=== PATIENT | male | born 1975 | race Caucasian/White ===

== ENCOUNTER 2018-08-30 09:48 | Emergency (ER) | payer OTHER ==
[2018-08-30 10:31] LABS: Protime INR 1.01
[2018-08-30 10:37] LABS: Absolute Lymphocytes (CBC) 2.1 K/uL (0.7-4.9); Basophils % 0.3 % (0-1.3); Eosinophils % 1.7 % (0-4.4); Hematocrit 48.8 % (39.6-49.0); Lymphocytes % 23.8 % (15.3-44.8); MPV 9.8 fL (7.6-11.3); Monocytes % 9.6 % (3.3-12.3); RBC Red Blood Cell Count 5.45 M/uL (4.33-5.43)
--- NOTE | 2018-08-30 10:39 | RAD REPORT ---
EXAM DESCRIPTION: RAD - Chest Single View - 08/30/2018 10:30 am CLINICAL HISTORY: CHEST PAIN Chest pain. COMPARISON: No comparisons FINDINGS: Portable technique limits examination quality. The lungs are grossly clear. The heart is normal in size. No displaced fractures. IMPRESSION: No acute intrathoracic process suspected.
[2018-08-30 10:52] LABS: ALT/SGPT 22 U/L (12-78); AST/SGOT 14 U/L (15-37); Albumin 3.9 g/dL (3.4-5.0); Alkaline Phosphatase 105 U/L (45-117); BUN Blood Urea Nitrogen 14 mg/dL (7-18); Bicarbonate 31 mmol/L (21-32); Bilirubin Direct < 0.1 mg/dL (0-0.2); Bilirubin Total 0.4 mg/dL (0.2-1.0); Glucose Level 89 mg/dL (74-106); Magnesium 2.1 mg/dL (1.8-2.4); NT PRO-BNP 37 pg/mL (<125); Potassium 3.8 mmol/L (3.5-5.1); Protein, Total 8.1 g/dL (6.4-8.2); Sodium Level 138 mmol/L (136-145); Troponin (Emerg Dept Use Only) < 0.02 ng/mL (0.0-0.045)
[2018-08-30 11:44] LABS: Urine Blood NEGATIVE (NEG); Urine Glucose NEGATIVE (NEG); Urine Protein NEGATIVE (NEG)
--- NOTE | 2018-08-30 12:10 | EKG ---
Test Date: 2018-08-30 Test Time: 09:58:09 Airplane Rigger: CASTRO MEASUREMENT RESULTS: Intervals: Rate: 42 WA: 172 QRSD: 78 QT: 420 QTc: 350 Archer: P: 32 WA: 172 QRS: 51 T: 22 INTERPRETIVE STATEMENTS: Marked sinus bradycardia Low voltage QRS Abnormal ECG No previous ECG available for comparison Electronically Signed On 08-30-18 12:10:07 CDT by Garett Whelan
--- NOTE | 2018-08-30 14:39 | ER ---
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 Transition of care: patient was not received from another setting of care. Onset of symptoms was August 30, 2018. Risk Assessment: Do you want to hurt yourself or someone else? Patient reports no desire to harm self or others. Initial Sepsis Screen: Does the patient meet any 2 criteria? No. Patient's initial sepsis screen is negative. Does the patient have a suspected source of infection? No. Patient's initial sepsis screen is negative. Care prior to arrival: None. 09:50 Method Of Arrival: Ambulatory 09:50 Acuity: DONOVAN 3 hj Triage Assessment: 09:58 General: Appears in no apparent distress. Behavior is calm, cooperative. Pain: ls4 Complains of pain in chest Pain currently is 2 out of 10 on a pain scale. Cardiovascular: Reports chest pain, Denies diaphoresis, lightheadedness, shortness of breath, syncope, vomiting. Respiratory: Respiratory effort is even, unlabored, Respiratory pattern is regular. Derm: Skin is pink, warm \T\ dry. Historical: - Allergies: 09:52 PENICILLINS; 09:52 Sulfa (Sulfonamide Antibiotics); - Home Meds: 09:52 Bystolic 10 mg oral tab 1 tab once daily [Active]; - PMHx: 09:52 Hypertension; - PSHx: 09:52 None; - Immunization history:: Last tetanus immunization: unknown. - Social history:: Smoking status: Patient/guardian denies using tobacco. - Ebola Screening: : Patient negative for fever greater than or equal to 101.5 degrees Fahrenheit, and additional compatible Ebola Virus Disease symptoms Patient denies exposure to infectious person Patient denies travel to an Ebola-affected area in the 21 days before illness onset No symptoms or risks identified at this time. Screenin:57 Abuse screen: Denies threats or abuse. Denies injuries from another. Nutritional ls4 screening: No deficits noted. Tuberculosis screening: No symptoms or risk factors identified. Fall Risk None identified. Assessment: 10:10 Pain: Complains of pain in chest Pain does not radiate. Quality of pain is described as ls4 tightness Pain began 2 hours ago. 11:30 Reassessment: Patient and/or family updated on plan of care and expected duration. Pain ls4 level reassessed. Patient is alert, oriented x 3, equal unlabored respirations, skin warm/dry/pink. 12:30 Reassessment: Patient and/or family updated on plan of care and expected duration. Pain ls4 level reassessed. Patient is alert, oriented x 3, equal unlabored respirations, skin warm/dry/pink. 13:00 Reassessment: Patient and/or family updated on plan of care and expected duration. Pain ls4 level reassessed. Patient is alert, oriented x 3, equal unlabored respirations, skin warm/dry/pink. 14:30 Reassessment: Patient and/or family updated on plan of care and expected duration. Pain ls4 level reassessed. Patient is alert, oriented x 3, equal unlabored respirations, skin warm/dry/pink. Vital Signs: 09:52 BP 153 / 103; Pulse 49; Resp 20; Temp 97.8(O); Pulse Ox 100% on R/A; Weight 115.67 kg; hj Height 5 ft. 11 in. (180.34 cm); Pain 2/10; 11:20 BP 102 / 72; Pulse 58; Resp 18; Temp 97.9(TE); Pulse Ox 97% ; mh5 12:06 BP 121 / 93; Pulse 49; Resp 13; Temp 97.9(TE); Pulse Ox 99% ; mh5 13:11 BP 113 / 72; Pulse 51; Resp 18; Temp 98.0(TE); Pulse Ox 99% on R/A; mh5 13:58 BP 108 / 72; Pulse 52; Resp 14; Temp 98.1(TE); Pulse Ox 99% on R/A; mh5 15:10 BP 116 / 81; Pulse 50; Resp 16; Pulse Ox 99% on R/A; Pain 0/10; ls4 09:52 Body Mass Index 35.57 (115.67 kg, 180.34 cm) ED Course: 09:51 Patient arrived in ED. mr 09:51 Triage completed. hj 09:54 Arm band placed on right wrist. hj 09:56 Dora Fung, RN is Primary Nurse. ls4 09:57 Patient has correct armband on for positive identification. Placed in gown. Bed in low ls4 position. Call light in reach. Side rails up X 1. secured entrance monitor on. Pulse ox on. NIBP on. 09:57 No provider procedures requiring assistance completed. Patient maintains SpO2 ls4 saturation greater than 95% on room air. 10:00 EKG done, by technical applications scientist. dt2 10:17 James Borges MD is Attending Physician. kdr 10:29 X-ray completed. Portable x-ray completed in exam room. Patient tolerated procedure jb2 well. 10:33 XRAY Chest (1 view) In Process Unspecified. EDMS 15:12 IV discontinued, intact, bleeding controlled, No redness/swelling at site. Pressure ls4 dressing applied. Administered Medications: No medications were administered Outcome: 14:38 Discharge ordered by . kdr 15:12 Discharged to home ambulatory. ls4 15:12 Condition: stable 15:12 Discharge instructions given to patient, Instructed on discharge instructions, follow up and referral plans. medication usage, safety practices, Demonstrated understanding of instructions, follow-up care, medications. 15:14 Patient left the ED. ls4 Signatures: Dispatcher [employer] EDMS James Borges MD MD kdr Linsey Lopez Jesse jb2 Damian Boo RN RN hj Martinez, Maria Margo Zelaya dt2 Dora Fung, RN RN ls4 Corrections: (The following items were deleted from the chart) 09:54 09:52 Pulse 49bpm; Resp 20bpm; Pulse Ox 100% RA; Temp 97.8F Oral; 115.67 kg; Height 5 hj ft. 11 in.; BMI: 35.5; Pain 2/10; hj
--- NOTE | 2018-08-30 14:39 | EDPHYS ---
Physician Documentation [facility] Name: Pop Estes Age: 43 yrs Sex: Male : 1975 Arrival Date: 08/30/2018 Time: 09:51 Bed 16 Private MD: ED Physician James Borges HPI: 08/30 10:48 This 43 yrs old Male presents to ER via Ambulatory with complaints of Chest kdr Pain. 10:48 The patient or guardian reports chest pain that is located primarily in the anterior kdr chest wall, left. Onset: suddenly, just prior to arrival. The pain does not radiate. Associated signs and symptoms: Pertinent positives: nausea, Pertinent negatives: diaphoresis, shortness of breath. The chest pain is described as burning, dull, a pressure. Duration: The patient or guardian reports a single episode, that is now resolved. Modifying factors: The symptoms are alleviated by nothing. the symptoms are aggravated by nothing. Severity of pain: At its worst the pain was mild. The patient has experienced similar episodes in the past, several times. The patient has not recently seen a physician. The patient was sitting in a meeting when he became flushed and generally poor. He went to the bathroom and flushed his face with water. He noted his BP to be 160/100 - normal is 118/80. He was very anxious but is feeling better now. Historical: - Allergies: 09:52 PENICILLINS; 09:52 Sulfa (Sulfonamide Antibiotics); - Home Meds: 09:52 Bystolic 10 mg oral tab 1 tab once daily [Active]; hj - PMHx: 09:52 Hypertension; - PSHx: 09:52 None; hj - Immunization history:: Last tetanus immunization: unknown. - Social history:: Smoking status: Patient/guardian denies using tobacco. - Ebola Screening: : Patient negative for fever greater than or equal to 101.5 degrees Fahrenheit, and additional compatible Ebola Virus Disease symptoms Patient denies exposure to infectious person Patient denies travel to an Ebola-affected area in the 21 days before illness onset No symptoms or risks identified at this time. ROS: 10:48 Constitutional: Negative for fever, chills, and weight loss, Eyes: Negative for injury, kdr pain, redness, and discharge, ENT: Negative for injury, pain, and discharge, Neck: Negative for injury, pain, and swelling, Respiratory: Negative for shortness of breath, cough, wheezing, and pleuritic chest pain, Abdomen/GI: Negative for abdominal pain, nausea, vomiting, diarrhea, and constipation, Back: Negative for injury and pain, : Negative for injury, bleeding, discharge, and swelling, MS/Extremity: Negative for injury and deformity, Skin: Negative for injury, rash, and discoloration, Neuro: Negative for headache, weakness, numbness, tingling, and seizure activity. Psych: Negative for depression, anxiety, suicide ideation, homicidal ideation, and hallucinations, Allergy/Immunology: Negative for hives, rash, and allergies, Endocrine: Negative for neck swelling, polydipsia, polyuria, polyphagia, and marked weight changes, Hematologic/Lymphatic: Negative for swollen nodes, abnormal bleeding, and unusual bruising. 10:48 Cardiovascular: Positive for chest pain, Negative for edema, orthopnea, palpitations, paroxysmal nocturnal dyspnea, acute changes. Exam: 10:48 Constitutional: This is a well developed, well nourished patient who is awake, alert, kdr and in no acute distress. Head/Face: Normocephalic, atraumatic. Eyes: Pupils equal round and reactive to light, extra-ocular motions intact. Lids and lashes normal. Conjunctiva and sclera are non-icteric and not injected. Cornea within normal limits. Periorbital areas with no swelling, redness, or edema. Neck: Trachea midline, no thyromegaly or masses palpated, and no cervical lymphadenopathy. Supple, full range of motion without nuchal rigidity, or vertebral point tenderness. No Meningismus. Chest/axilla: Normal chest wall appearance and motion. Nontender with no deformity. No lesions are appreciated. Cardiovascular: Regular rate and rhythm with a normal S1 and S2. No gallops, murmurs, or rubs. Normal PMI, no JVD. No pulse deficits. Respiratory: Lungs have equal breath sounds bilaterally, clear to auscultation and percussion. No rales, rhonchi or wheezes noted. No increased work of breathing, no retractions or nasal flaring. Abdomen/GI: Soft, non-tender, with normal bowel sounds. No distension or tympany. No guarding or rebound. No evidence of tenderness throughout. Back: No spinal tenderness. No costovertebral tenderness. Full range of motion. Skin: Warm, dry with normal turgor. Normal color with no rashes, no lesions, and no evidence of cellulitis. MS/ Extremity: Pulses equal, no cyanosis. Neurovascular intact. Full, normal range of motion. Neuro: Awake and alert, GCS 15, oriented to person, place, time, and situation. Cranial nerves II-XII grossly intact. Motor strength 5/5 in all extremities. Sensory grossly intact. Cerebellar exam normal. Normal gait. Psych: Awake, alert, with orientation to person, place and time. Behavior, mood, and affect are within normal limits. Vital Signs: 09:52 BP 153 / 103; Pulse 49; Resp 20; Temp 97.8(O); Pulse Ox 100% on R/A; Weight 115.67 kg; hj Height 5 ft. 11 in. (180.34 cm); Pain 2/10; 11:20 BP 102 / 72; Pulse 58; Resp 18; Temp 97.9(TE); Pulse Ox 97% ; mh5 12:06 BP 121 / 93; Pulse 49; Resp 13; Temp 97.9(TE); Pulse Ox 99% ; mh5 13:11 BP 113 / 72; Pulse 51; Resp 18; Temp 98.0(TE); Pulse Ox 99% on R/A; mh5 13:58 BP 108 / 72; Pulse 52; Resp 14; Temp 98.1(TE); Pulse Ox 99% on R/A; mh5 15:10 BP 116 / 81; Pulse 50; Resp 16; Pulse Ox 99% on R/A; Pain 0/10; ls4 09:52 Body Mass Index 35.57 (115.67 kg, 180.34 cm) MDM: 14:38 Patient medically screened. kdr 15:15 Data reviewed: vital signs, nurses notes, lab test result(s), radiologic studies. kdr 08/30 10:09 Order name: Basic Metabolic Panel; Complete Time: 11:51 [facility] 08/30 10:09 Order name: CBC with Diff; Complete Time: 11:51 [facility] 08/30 10:09 Order name: LFT's; Complete Time: 11:51 [facility] 08/30 10:09 Order name: Magnesium; Complete Time: 11:51 [facility] 08/30 10:09 Order name: NT PRO-BNP; Complete Time: 11:51 [facility] 08/30 10:09 Order name: PT-INR; Complete Time: 11:51 [facility] 08/30 09:54 Order name: EKG; Complete Time: 09:56 hj 08/30 10:09 Order name: Troponin (emerg Dept Use Only); Complete Time: 11:51 [facility] 08/30 10:09 Order name: XRAY Chest (1 view); Complete Time: 11:51 [facility] 08/30 10:09 Order name: Cardiac monitoring; Complete Time: 10:10 [facility] 08/30 10:56 Order name: Urine Dipstick--Ancillary (enter results); Complete Time: 11:51 bd 08/30 11:52 Order name: Troponin (emerg Dept Use Only): Obtain two hours after initial draw; kdr Complete Time: 14:35 08/30 12:31 Order name: EKG; Complete Time: 12:31 [facility] 08/30 10:09 Order name: EKG - Nurse/Tech; Complete Time: 10:10 [facility] 08/30 10:09 Order name: IV Saline Lock; Complete Time: 10:17 [facility] 08/30 10:09 Order name: Labs collected and sent; Complete Time: 10:10 [facility] 08/30 10:09 Order name: O2 Per Protocol; Complete Time: 10:10 [facility] 08/30 10:09 Order name: O2 Sat Monitoring; Complete Time: 10:10 [facility] 08/30 11:52 Order name: EKG - Nurse/Tech; Complete Time: 12:31 kdr Administered Medications: No medications were administered Disposition: 08/30/18 14:38 Discharged to Home. Impression: Weakness, Dizziness and giddiness, Bradycardia, unspecified. - Condition is Stable. - Discharge Instructions: Bradycardia, Adult, Nonspecific Chest Pain, [id number], Weakness, [id number]-[id number], Dizziness, [id number]. - Medication Reconciliation Form, Thank You Letter, Work release form form. - Follow up: Private Physician; When: 2 - 3 days; Reason: If symptoms return, Further diagnostic work-up, Recheck today's complaints, Continuance of care, Re-evaluation by your physician. - Problem is new. - Symptoms are resolved. - Notes: Take one half of your normal Bystolic dose. Follow-up with your cardioloogist at the next available appointment. Signatures: Dispatcher [employer] James Merrill MD MD kdr Damian Boo RN RN hj Dora Fung RN RN ls4 Corrections: (The following items were deleted from the chart) 15:14 14:38 08/30/2018 14:38 Discharged to Home. Impression: Weakness; Dizziness and ls4 giddiness; Bradycardia, unspecified. Condition is Stable. Forms are Medication Reconciliation Form, Thank You Letter, Antibiotic Education, Prescription Opioid Use. Follow up: Private Physician; When: 2 - 3 days; Reason: If symptoms return, Further diagnostic work-up, Recheck today's complaints, Continuance of care, Re-evaluation by your physician. Problem is new. Symptoms are resolved. kdr
--- NOTE | 2018-08-30 16:28 | EKG ---
Test Date: 2018-08-30 Test Time: 12:15:38 Miter Saw Operator: CASTRO MEASUREMENT RESULTS: Intervals: Rate: 44 AL: 176 QRSD: 84 QT: 430 QTc: 367 Clear: P: 22 AL: 176 QRS: 60 T: 14 INTERPRETIVE STATEMENTS: Marked sinus bradycardia Abnormal ECG Compared to ECG 08/30/2018 09:58:09 No significant changes Electronically Signed On 08-30-18 16:27:23 CDT by Garett Whelan
== END 2018-08-30 15:14 | disposition home or self-care (01) ==
LOC: ER 09:48
DX: R00.1 Bradycardia, unspecified (principal); R53.1 Weakness; R42 Dizziness and giddiness; R11.0 Nausea; I10 Essential (primary) hypertension; Z88.0 Allergy status to penicillin; Z88.2 Allergy status to sulfonamides
CPT/HCPCS: 36415; 71045; 80048; 80076; 81003; 83735; 83880; 84484; 85025; 85610; 93005; 99285

== ENCOUNTER 2019-08-28 19:09 | Emergency (ER) | payer BC, OTHER ==
--- OUTSIDE RECORDS SUMMARY | 2019-08-28 20:22 | XMS REPORT | Continuity of Care Document ---
:1975 Author Organization [facility] t Address [address] [place] [address] Care Team Providers Name Role Phone Unavailable Unavailable Unavailable Problems Condition Condition Condition Status Onset Resolution Last Treating Co mments Source Name Details Category Date Date Treatment Clinician Date Guttate Guttate Diagnosis [facility] Erectile Erectile Diagnosis Active [facility] dysfunctio dysfunctio Mely kes - n, n, Memoria unspecifie unspecifie l d erectile d erectile Ou tpati dysfunctio dysfunctio en t n type n type Clinics Mixed Mixed Problem Active [facility] hyperlipid hyperlipid Mely kes - emia emia [facility]oria l [facility] Insomnia, Insomnia, Diagnosis Active [facility] unspecifie unspecifie Mely kes - d type d type Memoria l [facility] HTN, goal HTN, goal Problem Active [facility] below below [facility] - 140/90 140/90 [facility] l [facility] Body mass Body mass Diagnosis Active [facility] index index [facility] - (BMI) (BMI) Memoria 38.0-38.9, 38.0-38.9, l adult adult [facility] Morbid Morbid Diagnosis Active [facility] (severe) (severe) [facility] - obesity obesity Memoria due to due to l excess excess Outpati calories calories ent Clinics Encounter Encounter Diagnosis Active [facility] for for [facility] - dietary dietary Memoria counseling counseling l and and Outpati surveillan surveillan en t ce ce Clinics Allergies, Adverse Reactions, Alerts Allergy Allergy Status Severity Reaction(s) Onset Inactive Treating Comm ents Source Name Type Date Date Clinician penicill Adverse Active Info Not [facility] Reaction Available [facility] Sulfa Adverse Active Info Not [facility] Reaction Available [facility] Medications Ordered Filled Start Stop Current Ordering Indication Dosage Frequency Signature Comments Components Source Medication Medication Date Date Medication? Clinician (SIG) Name Name Ted Jean Yes Colin [address] [facility] Bystolic Bystolic Yes Colin [address] [facility] Fish Oil Fish Oil Yes Colin [address] [facility] Enstilar Enstilar Yes Colin not [facility] defined [facility] Sildenafil Sildenafil Yes Colin [address] [facility] [address] Citrate Citrate Paez as needed [place] [facility] Procedures This patient has no known procedures. Encounters Start End Encounter Admission Attending Care Care Encounter Source Date/Time Date/Time Type Type Clinicians Facility Department ID 2019-06-23 2019-06-23 Outpatient Maggie Manzo [id number] [facility] 09:30:00 09:30:00 [employer] [facility] Outpat[facility] ent Clinics 2019-06-22 2019-06-22 Outpatient Maggie Serranot [id number] [facility] 09:59:00 09:59:00 [email or web address] [facility] Outpati ent Clinics 2019-02-27 2019-02-27 Outpatient Maggie Serranot [id number] [facility] 16:00:00 16:00:00 [place] [facility] Outpati ent Clinics 2019-02-17 2019-02-17 Outpatient Maggie Manzo [id number] 09:01:00 09:01:00 [place] [facility] Results This patient has no known results.
--- OUTSIDE RECORDS SUMMARY | 2019-08-28 20:22 | XMS REPORT ---
:1975 Author Organization [employer] Care Team Providers Name Role Phone Philippe [facility] Provider Role Unavailable Allergies, Adverse Reactions, Alerts Substance Reaction Event Type penicillin Info Not Available Drug Allergy Sulfa Info Not Available Drug Allergy Problems Problem Type Condition Code Onset Dates Condition Statu s Assessment Mixed hyperlipidemia E78.2 Active Assessment HTN, goal below 140/90 I10 Activ e Problem Body mass index (BMI) 38.0-38.9, Z68.38 Active adult Problem Erectile dysfunction, unspecified N52.9 Active erectile dysfunction type Problem Morbid (severe) obesity due to E66.01 Active excess calories Problem Mixed hyperlipidemia E78.2 Active Problem 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 Problem Insomnia, unspecified type G47.00 A ctive Problem HTN, goal below 140/90 I10 Activ e Assessment Morbid (severe) obesity due to E66.01 Active excess calories Assessment Insomnia, unspecified type G47.00 A ctive Assessment Encounter for dietary counseling and Z71.3 Active surveillance Assessment Erectile dysfunction, unspecified N52.9 Active erectile dysfunction type Assessment Body mass index (BMI) 38.0-38.9, Z68.38 Active adult Assessment 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 Medications Medication Code Code Instructions Start End Status Dosage System Date Date Fish Oil [facility] 66046405239 1000 MG Orally Active 1 ca psule Once a day Bystolic [facility] 06822799553 5 MG Orally Active 1 table t Once a day Crestor [facility] 39491265109 10 MG Orally Active 1 table t Once a day Enstilar [facility] [address]-41 Active not defined Sildenafil [facility] 67446734398 20 MG Oral Once Active 1 tablet Citrate a day as needed Results No Known Results Summary Purpose [employer] Submission
--- OUTSIDE RECORDS SUMMARY | 2019-08-28 20:22 | XMS REPORT ---
:1975 Author Organization [employer] Care Team Providers Name Role Phone Philippe Colin Provider Role Unavailable Allergies No Known Allergies Problems Problem Type Condition Code Onset Dates [...] HTN, goal below 140/90 I10 Activ e Medications Medication Code System Code Instructions Start Date End Date Status Dosage Crestor [facility] 45707042292 10 MG Orally Once Active 1 tablet a day Bystolic [facility] 39873847868 5 MG Orally Once Active 1 tablet a day Results No Known Results Summary Purpose [employer] Submission
[2019-08-28] MEDS ORDERED: KETOROLAC 30 MG/ML INJ ONE (20:35)
--- NOTE | 2019-08-28 20:48 | ER ---
Nurse's Notes [facility] Name: Pop Estes Age: 44 yrs Sex: Male : 1975 Arrival Date: 08/28/2019 Time: 19:18 Bed 4 Private MD: Diagnosis: Sprain of other parts of lumbar spine and pelvis Presentation: 08/27 19:53 Chief complaint: Patient states: "I STARTED HAVING BACK SPASMS WEDNESDAY, I'VE TRIED ICE, vc HEAT, ALIEVE, I WENT TO THE CHIROPRACTOR TODAY AND SHE WOULDN'T ADJUST ME BECAUSE SHE SAID I HAD TOO MANY MUSCLE SPASMS. SHE DID X-RAY AND SAID I'M SO INFLAMED IT COULD BE PINCHING MY NERVE. IM STARTING TO FEEL THE PAIN DOWN TO MY KNEE.". Coronavirus screen: Proceed with normal triage. Patient denies a cough. Patient denies shortness of breath or difficulty breathing. Patient denies measured and/or subjective temperature greater than 100.4F prior to today's visit. Patient denies travel on a cruise ship or to a country the [facility] currently lists as an affected area. Patient denies contact with known and/or suspected case of COVID-19. Ebola Screen: No symptoms or risks identified at this time. Initial Sepsis Screen: Does the patient meet any 2 criteria? No. Patient's initial sepsis screen is negative. Does the patient have a suspected source of infection? No. Patient's initial sepsis screen is negative. Risk Assessment: Do you want to hurt yourself or someone else? Patient reports no desire to harm self or others. Onset of symptoms was August 25, 2019. 19:53 Method Of Arrival: Wheelchair vc 19:53 Acuity: DONOVAN 3 vc Historical: - Allergies: 20:37 PENICILLINS; rv 20:38 Sulfa (Sulfonamide Antibiotics); rv - PMHx: 20:38 Hypertension; rv - PSHx: 20:38 Unable to obtain; rv - Immunization history:: Adult Immunizations. - Social history:: Smoking status: unknown. Screenin:38 Abuse screen: Denies threats or abuse. Denies injuries from another. Nutritional rv screening: No deficits noted. Tuberculosis screening: No symptoms or risk factors identified. Fall Risk None identified. Assessment: 20:36 General: Appears uncomfortable, Behavior is calm, cooperative. Pain: Complains of pain rv in back Quality of pain is described as SPASM. Neuro: Level of Consciousness is awake, alert, obeys commands, Oriented to person, place, time, situation. Cardiovascular: Patient's skin is warm and dry. Respiratory: Airway is patent Respiratory effort is even, unlabored. Derm: Skin is intact. Vital Signs: 19:53 BP 133 / 89; Pulse 74; Resp 17; Temp 99.3; Pulse Ox 98% on R/A; Weight 121.56 kg; vc Height 5 ft. 11 in. (180.34 cm); Pain 10/10; 19:53 Body Mass Index 37.38 (121.56 kg, 180.34 cm) vc ED Course: 19:18 Patient arrived in ED. cl3 20:03 Triage completed. vc 20:10 Harshil Jensen MD is Attending Physician. tw4 20:25 Benjamin Reynoso RN is Primary Nurse. rv 20:39 Patient has correct armband on for positive identification. Pulse ox on. NIBP on. rv 20:39 Patient placed in the treatment room, in a wheelchair. rv 21:05 No provider procedures requiring assistance completed. Patient did not have IV access rv during this emergency room visit. Administered Medications: 20:36 Drug: TORadol 60 mg Route: IM; Site: right deltoid; rv 21:04 Follow up: Response: No adverse reaction rv 21:04 Drug: [place] 5 mg-325 mg 1 tabs {Note: rass 0.} Route: PO; rv 21:04 Follow up: Response: Medication administered at discharge. rv 21:04 Drug: Flexeril 10 mg Route: PO; rv 21:04 Follow up: Response: Medication administered at discharge. rv Outcome: 20:47 Discharge ordered by . tw4 21:05 Discharged to home ambulatory, with family. rv 21:05 Condition: good 21:05 Discharge instructions given to patient, Instructed on discharge instructions, follow up and referral plans. medication usage, Demonstrated understanding of instructions, follow-up care, medications, Prescriptions given X 3. 21:05 Patient left the ED. rv Signatures: Harshil Jensen MD MD tw4 Benjamin Reynoso RN RN rv Lina Coon cl3 Bailey Jesus RN RN vc
--- NOTE | 2019-08-28 20:48 | EDPHYS ---
Physician Documentation [facility] Name: Pop Estes Age: 44 yrs Sex: Male : 1975 Arrival Date: 08/28/2019 Time: 19:18 Bed 4 Private MD: ED Physician Harshil Jensen HPI: 08/27 20:32 This 44 yrs old Male presents to ER via Wheelchair with complaints of Back tw4 Pain. 20:32 The patient presents with pain that is acute. tw4 20:34 The symptoms are located in the low back. Onset: The symptoms/episode began/occurred tw4 yesterday. The pain radiates to the left quadriceps. 08/28 06:50 Associated signs and symptoms: The patient has no apparent associated signs or tw4 symptoms. The problem was sustained when bending over, when lifting heavy object. Severity of symptoms: At their worst the symptoms were moderate, in the emergency department the symptoms are unchanged. The patient has not experienced similar symptoms in the past. Historical: - Allergies: 08/27 20:37 PENICILLINS; rv 20:38 Sulfa (Sulfonamide Antibiotics); rv - PMHx: 20:38 Hypertension; rv - PSHx: 20:38 Unable to obtain; rv - Immunization history:: Adult Immunizations. - Social history:: Smoking status: unknown. ROS: 08/28 06:50 Constitutional: Negative for fever, chills, and weight loss, Eyes: Negative for injury, tw4 pain, redness, and discharge, Cardiovascular: Negative for chest pain, palpitations, and edema, Respiratory: Negative for shortness of breath, cough, wheezing, and pleuritic chest pain, Abdomen/GI: Negative for abdominal pain, nausea, vomiting, diarrhea, and constipation, MS/Extremity: Negative for injury and deformity, Skin: Negative for injury, rash, and discoloration, Neuro: Negative for headache, weakness, numbness, tingling, and seizure. Back: Positive for injury or acute deformity, decreased range of motion, pain at rest, pain with movement. Exam: 06:50 Constitutional: This is a well developed, well nourished patient who is awake, alert, tw4 and in no acute distress. Head/Face: Normocephalic, atraumatic. Chest/axilla: Normal chest wall appearance and motion. Nontender with no deformity. No lesions are appreciated. Cardiovascular: Regular rate and rhythm with a normal S1 and S2. No gallops, murmurs, or rubs. Normal PMI, no JVD. No pulse deficits. Respiratory: Lungs have equal breath sounds bilaterally, clear to auscultation and percussion. No rales, rhonchi or wheezes noted. No increased work of breathing, no retractions or nasal flaring. Abdomen/GI: Soft, non-tender, with normal bowel sounds. No distension or tympany. No guarding or rebound. No evidence of tenderness throughout. MS/ Extremity: Pulses equal, no cyanosis. Neurovascular intact. Full, normal range of motion. Neuro: Awake and alert, GCS 15, oriented to person, place, time, and situation. Cranial nerves II-XII grossly intact. Motor strength 5/5 in all extremities. Sensory grossly intact. Cerebellar exam normal. Normal gait. 06:50 Back: pain, that is mild, ROM is decreased. Vital Signs: 08/27 19:53 BP 133 / 89; Pulse 74; Resp 17; Temp 99.3; Pulse Ox 98% on R/A; Weight 121.56 kg; vc Height 5 ft. 11 in. (180.34 cm); Pain 10/10; 19:53 Body Mass Index 37.38 (121.56 kg, 180.34 cm) vc MDM: 20:10 Patient medically screened. tw4 08/28 06:50 Differential diagnosis: Cholelithiasis Osteoarthritis Osteomalacia Osteomyelitis tw4 Osteoporosis Pyelonephritis ruptured disc, Ureterolithiasis vertebral fracture. Data reviewed: vital signs, nurses notes. Data interpreted: Pulse oximetry: Interpretation: normal. Counseling: I had a detailed discussion with the patient and/or guardian regarding: the historical points, exam findings, and any diagnostic results supporting the discharge/admit diagnosis. Medication response: Toradol partially relieved the patient's pain. Response to treatment: the patient's symptoms have markedly improved after treatment, and as a result, I will discharge patient. Administered Medications: 08/27 20:36 Drug: TORadol 60 mg Route: IM; Site: right deltoid; rv 21:04 Follow up: Response: No adverse reaction rv 21:04 Drug: [place] 5 mg-325 mg 1 tabs {Note: rass 0.} Route: PO; rv 21:04 Follow up: Response: Medication administered at discharge. rv 21:04 Drug: Flexeril 10 mg Route: PO; rv 21:04 Follow up: Response: Medication administered at discharge. rv Disposition: 08/28/19 20:47 Discharged to Home. Impression: Sprain of other parts of lumbar spine and pelvis. - Condition is Stable. - Discharge Instructions: Back Pain, Adult. - Prescriptions for Ibuprofen 800 mg Oral Tablet - take 1 tablet by ORAL route every 8 hours As needed take with food; 30 tablet. Tramadol 50 mg Oral Tablet - take 1 tablet by ORAL route every 8 hours as needed; 12 tablet. Cyclobenzaprine 5 mg Oral Tablet - take 1 tablet by ORAL route 3 times per day As needed; 15 tablet. - Medication Reconciliation Form, Thank You Letter, Antibiotic Education, Prescription Opioid Use, Work release form form. - Follow up: Private Physician; When: Upon discharge from the Emergency Department; Reason: Recheck today's complaints, Continuance of care, Re-evaluation by your physician. - Problem is new. - Symptoms have improved. Signatures: Harshil Jensen MD MD tw4 Benjamin Reynoso RN RN rv Corrections: (The following items were deleted from the chart) 21:05 20:47 08/28/2019 20:47 Discharged to Home. Impression: Sprain of other parts of lumbar rv spine and pelvis. Condition is Stable. Forms are Medication Reconciliation Form, Thank You Letter, Antibiotic Education, Prescription Opioid Use. Follow up: Private Physician; When: Upon discharge from the Emergency Department; Reason: Recheck today's complaints, Continuance of care, Re-evaluation by your physician. Problem is new. Symptoms have improved. tw4
[2019-08-28] MEDS ORDERED: CYCLOBENZAPRINE 10 MG TAB ONE (21:08)
[2019-08-28] MEDS ORDERED: HYDROCODONE/APAP 5/325 MG TAB ONE (21:08)
[2019-08-28 21:12] VITALS: BP 133/89; TEMP 99.3; O2SAT 98
== END 2019-08-28 21:05 | disposition home or self-care (01) ==
LOC: ER 19:09
DX: S33.8XXA Sprain of other parts of lumbar spine and pelvis, initial encounter (principal); X50.0XXA Overexertion from strenuous movement or load, initial encounter; I10 Essential (primary) hypertension; Z88.0 Allergy status to penicillin; Z88.2 Allergy status to sulfonamides
CPT/HCPCS: 96372; 99283

== ENCOUNTER 2024-07-29 11:55 | Emergency (ER) | payer BC ==
--- OUTSIDE RECORDS SUMMARY | 2024-07-29 11:59 | XMS REPORT | Clinical Summary ---
Author Name Unknown Organization [facility] Address [address] [place] [address] Care Team Providers Care Rn Licensed Practical Name Role Phone Zaid Ambrosio MD Primary Care Provider [phone] Elke Yarbrough MD Unavailable Yariel Summers MD Unavailable [phone] Allergies Active Allergy Reactions Criticality Noted Date Comments Mold Other (See Comments) 01/07/2016 Penicillins Hives High 01/07/2016 Sulfa (Sulfonamide Antibiotics) Hives 12/14 Medications nebivolol (BYSTOLIC) 10 mg tablet Take 1 tablet by mouth daily. 5 Active MULTIVIT-MINERA LS/FA/LYCOPENE (ONE-A-DAY MEN'S ORAL) Take 1 tablet by mouth daily. Active DOCOSAHEXANOIC ACID/EPA (FISH OIL ORAL) Take 1,400 mg by mouth daily. Active L. ACIDOPHILUS/BIF CHAPIS LONGUM (PROBIOTIC PEARLS ORAL) Take 1 tablet by mouth daily. Active psyllium, aspartame, (METAMUCIL) 3.4 g packet Take 1 packet by mouth daily. Active triamcinolone (KENALOG) 0.1% cream Apply 1 application topically to affected area(s) daily. Active clobetasol (TEMOVATE) 0.05% cream Apply topically to affected area(s). Active Active Problems Problem Noted Date Diagnosed Date Mass of axilla 01/07/2016 Medical History Medical History Date Comments Hypertension 2013 Hyperlipidemia 2014 Sinusitis 11/2015 Deviated septum Nodule in breast 10/2015 Under right arm Cyst of breast 2006 2 small cysts re moved Gastric reflux Genital warts Immune disease 12 years old Guttate psoriasi s Fracture 1993 Broken hand Anxiety 14 years old Psoriasis 14 years old Guttate psoriasi s Gastroesophageal reflux disease Family History Medical History Relation Name Comments -Leukemia Father Gus cespedes Chronic Mye logenous Leukemia Hypertension Maternal Aunt Simona cash High bp -Melanoma Mother Luz cesepdes Skin cance r removed basal cell Hypertension Mother Luz cespedes High bp Relation Name Status Comments Father Gus cespedes Maternal Aunt Simona cash Mother Luz cespedes Social History Tobacco Use Types Packs/Day Years Used Date Smoking Tobacco: Passive Smoke Exposure - Never Smoker Cigarettes 0.3 10 - 01/07/2016 Smokeless Tobacco: Current Tobacco Cessation:Ready to Q uit: Yes Alcohol Use Standard Drinks/Week Comments No 0 (1 standard drink = 0.6 oz pur e alcohol) Sex and Gender Information Value Date Recorded Sex Assigned at Not on file Legal Sex Male 10:58 AM CDT Gender Identity Not on file Sexual Orientation Not on file Obstetrics History Plan of Treatment Health Maintenance Due Date Last Done Comments COVID-19 Vaccine ( - 2023-2 5 season) 2023 Influenza Vaccine (Season Ended) 2024 Pneumococcal Vaccine Aged Out No long er eligible based on patient's age to complete this topic Insurance AENA O AETNA O AETNA O Care Teams Rn Licensed Practical Relationship Specialty Start Date End Date Zaid Ambrosio MD [address] [place] [id number] [email or web address] - General Internal Medicine 01/07/16 Elke Yarbrough MD [address] [place] [id number] [email or web address] [email or web address] 01/07/16 Yariel Summers MD [address] [place] [id number] [email or web address] Physician Internal Medicine 01/07/16
[2024-07-29] MEDS ORDERED: HYDROCODONE/APAP 5/325 MG TAB ONE (12:26)
[2024-07-29] MEDS ORDERED: ONDANSETRON 4 MG/2 ML VIAL ONE (13:15)
[2024-07-29] MEDS ORDERED: MORPHINE 4 MG/ML SYR ONE (13:15)
--- NOTE | 2024-07-29 13:57 | RAD REPORT ---
EXAMINATION: Elbow Right 3 View CLINICAL INDICATION: Male, 49 years old. Swelling;Pain RIGHT COMPARISON: No prior exam. FINDINGS: No acute fracture. No malalignment/dislocation. No significant focal degenerative change. Other: n/a IMPRESSION: No acute osseous abnormality.
--- NOTE | 2024-07-29 13:58 | RAD REPORT ---
EXAMINATION: Humerus Right VIEWS: Two views CLINICAL INDICATION: Male, 49 years old. Swelling;Pain RIGHT COMPARISON: No prior exam. IMPRESSION: No acute fracture. No acute soft tissue abnormality. No radiopaque foreign body.
--- NOTE | 2024-07-29 14:04 | EDPHYS ---
Physician Documentation [facility] Name: Pop Estes Age: 49 yrs Sex: Male : 1975 Arrival Date: 07/29/2024 Time: 11:55 Bed 10 Private MD: ED Physician Grabiel Seaman HPI: 07/29 12:03 This 49 yrs old Male presents to ER via Unassigned with complaints of Arm dr5 Injury - SAYS SOUNDED LIKE SOMETHING SNAPPED. 12:03 Patient is a 49-year-old male coming in with right upper arm pain specific to right dr5 humerus and right elbow when he states he heard something snap in his right upper arm. Patient reports bulging and swelling to right bicep that is not normal. Patient also reports is not able to extend his arm all the way due to pain.. Historical: - Allergies: 12:18 PENICILLINS; ll1 12:18 Sulfa (Sulfonamide Antibiotics); ll1 - Home Meds: 12:18 Tremfya subcutaneous [Active]; ll1 13:26 Lisinopril Oral [Active]; Lexapro Oral [Active]; hb - PMHx: 12:18 Hypercholesterolemia; Hypertension; ll1 - PSHx: 12:18 None; ll1 - Immunization history:: Adult Immunizations up to date. - Infectious Disease History:: Denies. - Social history:: Smoking status: Patient reports use of chewing tobacco. ROS: 12:03 Constitutional: as per hpi dr5 Exam: 12:03 Constitutional: This is a well developed, well nourished patient who is awake, alert, dr5 and in no acute distress. Head/Face: Normocephalic, atraumatic. Eyes: Pupils equal round and reactive to light, extra-ocular motions intact. Lids and lashes normal. Conjunctiva and sclera are non-icteric and not injected. Cornea within normal limits. Periorbital areas with no swelling, redness, or edema. Neck: Trachea midline, no thyromegaly or masses palpated, and no cervical lymphadenopathy. Supple, full range of motion without nuchal rigidity, or vertebral point tenderness. No Meningismus. Chest/axilla: Normal chest wall appearance and motion. Nontender with no deformity. No lesions are appreciated. Cardiovascular: Regular rate and rhythm with a normal S1 and S2. Normal PMI, no JVD. No pulse deficits. Respiratory: Lungs have equal breath sounds bilaterally, clear to auscultation. No rales, rhonchi or wheezes noted. No increased work of breathing, no retractions or nasal flaring. Back: No spinal tenderness. No costovertebral tenderness. Full range of motion. Skin: Warm, dry with normal turgor. Normal color with no rashes, no lesions, and no evidence of cellulitis. Neuro: Awake and alert, GCS 15, oriented to person, place, time, and situation. Cranial nerves II-XII grossly intact. Motor strength 5/5 in all extremities. Sensory grossly intact. Cerebellar exam normal. Normal gait. 12:03 Musculoskeletal/extremity: Extremities: noted in the right bicep and right antecubital area: pain, swelling, tenderness, ROM: limited active range of motion, in the right arm, Circulation is intact in all extremities. Sensation intact. Vital Signs: 12:19 Pulse 89; Resp 16; Temp 97.1; Pulse Ox 97% ; Weight 126.1 kg; Height 5 ft. 11 in. ; ll1 Pain 5/10; 12:19 BP 146 / 90; ll1 14:50 BP 145 / 95; Pulse 72; Resp 17; Pulse Ox 98% ; Pain 3/10; ll1 12:19 Body Mass Index 38.77 (126.10 kg, 180.34 cm) ll1 12:19 Pain Scale: Adult ll1 14:50 Pain Scale: Adult ll1 MDM: 12:00 Medical Screening Exam initiated dr5 15:06 Differential diagnosis: dislocation, open fracture, closed fracture, contusion, dr5 abrasion, tendonitis, Tendon tear, tendon rupture. Data reviewed: vital signs, nurses notes, radiologic studies, plain films. I considered the following discharge prescriptions or medication management in the emergency department Medications were administered in the Emergency Department. See MAR. Care significantly affected by the following chronic conditions: Hypertension, Hyperlipidemia. Care significantly affected by the following Social Determinants of Health: Poor access to healthcare and/or lack of insurance, Poor access to transportation, Problems related to employment. Counseling: I had a detailed discussion with the patient and/or guardian regarding the historical points, exam findings, and any diagnostic results supporting the discharge/admit diagnosis, the presence of at least one elevated blood pressure reading (>120/80) during this emergency department visit, lab results, the need for outpatient follow up, for definitive care, a family practitioner, a orthopedic surgeon, to return to the emergency department if symptoms worsen or persist or if there are any questions or concerns that arise at home. Medication response: morphine markedly relieved the patient's pain. Symptoms have improved, Zofran markedly relieved the patient's nausea. Response to treatment: the patient's symptoms have markedly improved after treatment. ED course: Sling applied in ER for comfort. Patient does not have any pain while in sling. Recommended patient follow-up with orthopedics on Wednesday for further management. Patient was given CD as well as x-ray reports to take with him. Recommended alternating Tylenol Motrin as needed for pain and will give tramadol for breakthrough pain. All questions answered.. 07/29 12:03 Order name: Humerus Right XRAY; Complete Time: 13:59 dr5 07/29 12:03 Order name: Elbow Right 3 View XRAY; Complete Time: 13:59 dr5 07/29 13:37 Order name: Sling; Complete Time: 14:47 dr5 Administered Medications: 12:40 Drug: HYDROcodone-acetaminophen PO 5 mg-325 mg 2 tabs PO once Route: PO; hb 13:25 Follow up: Response: No adverse reaction hb 13:21 Drug: morphine IVP or IV 4 mg IVP once over 4 mins {Note: pain 5/10 RASS 0.} Route: ll1 IVP; Infused Over: 4 mins; Site: left antecubital; 14:46 Follow up: Response: No adverse reaction; Pain is decreased; RASS: Alert and Calm (0) ll1 13:22 Drug: Ondansetron IVP 4 mg IVP once; over 2 minutes Route: IVP; Site: left antecubital; ll1 14:47 Follow up: Response: No adverse reaction ll1 Disposition Summary: 07/29/24 14:04 Discharge Ordered Notes: Location: Home dr5 Condition: Stable dr5 Diagnosis - Pain in right upper arm dr5 Followup: dr5 - With: Emergency Department - When: As needed - Reason: Worsening of condition Followup: dr5 - With: Ammon Vuong MD - When: 1 - 2 days - Reason: Recheck today's complaints, Continuance of care, Re-evaluation by your physician Followup: dr5 - With: Remy Ferrer MD - When: 1 - 2 days - Reason: Recheck today's complaints, Continuance of care, Re-evaluation by your physician Discharge Instructions: - Discharge Summary Sheet dr5 - How to Use a Sling dr5 - Distal Biceps Tendon Tear dr5 Forms: - Work release form dr5 - Medication Reconciliation Form dr5 - Patient Portal Instructions dr5 - Leadership Thank You Letter dr5 Prescriptions: - Tramadol 50 mg Oral tablet - take 1 tablet ORAL route every 8 hours as needed; 20 tablet; Refills: 0, dr5 Product Selection Permitted Signatures: Dispatcher [employer] EDIL Mellissa Perry RN RN Nikolai Coon RN RN ll1 Richie Jones, PLUSH CUTTER-C PLUSH CUTTER-Cdr5
--- NOTE | 2024-07-29 14:04 | ER ---
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 Limited ROM with severe pain since. Coronavirus screen: Client denies travel out of the [place] in the last 14 days. At this time, the client does not indicate any symptoms associated with coronavirus-19. Ebola Screen: Patient denies travel to an Ebola-affected area in the 21 days before illness onset. Initial Sepsis Screen: Does the patient meet any 2 criteria? No. Patient's initial sepsis screen is negative. Does the patient have a suspected source of infection? No. Patient's initial sepsis screen is negative. Risk Assessment: Do you want to hurt yourself or someone else? Patient reports no desire to harm self or others. Onset of symptoms was July 29, 2024. 12:19 Method Of Arrival: Ambulatory ll1 12:19 Acuity: DONOVAN 4 ll1 Triage Assessment: 12:19 General: Appears distressed, uncomfortable, Behavior is calm, cooperative, appropriate ll1 for age. Pain: Complains of pain in right arm Quality of pain is described as aching. Musculoskeletal: Reports pain in right arm. 12:20 Injury Description: strain RUE. ll1 Historical: - Allergies: 12:18 PENICILLINS; ll1 12:18 Sulfa (Sulfonamide Antibiotics); ll1 - Home Meds: 12:18 Tremfya subcutaneous [Active]; ll1 13:26 Lisinopril Oral [Active]; Lexapro Oral [Active]; hb - PMHx: 12:18 Hypercholesterolemia; Hypertension; ll1 - PSHx: 12:18 None; ll1 - Immunization history:: Adult Immunizations up to date. - Infectious Disease History:: Denies. - Social history:: Smoking status: Patient reports use of chewing tobacco. Screenin:30 [facility] ED Fall Risk Assessment (Adult) History of falling in the last 3 months, hb including since admission No falls in past 3 months (0 pts) Confusion or Disorientation No (0 pts) Intoxicated or Sedated No (0 pts) Impaired Gait No (0 pts) Mobility Assist Device Used No (0 pt) Altered Elimination No (0 pt) Score/Fall Risk Level 0 - 2 = Low Risk Oriented to surroundings, Maintained a safe environment, Educated pt \T\ family on fall prevention, incl call for assistance when getting out of bed. 12:30 Abuse screen: Denies threats or abuse. Denies injuries from another. Nutritional hb screening: No deficits noted. Tuberculosis screening: Assessment: 13:13 Reassessment: No changes from previously documented assessment. Patient and/or family ll1 updated on plan of care and expected duration. Pain level reassessed. Patient is alert, oriented x 3, equal unlabored respirations, skin warm/dry/pink. 14:47 Reassessment: No changes from previously documented assessment. Patient and/or family ll1 updated on plan of care and expected duration. Pain level reassessed. Patient is alert, oriented x 3, equal unlabored respirations, skin warm/dry/pink. 14:50 Musculoskeletal: Circulation, motion, and sensation intact. Capillary refill < 3 ll1 seconds, in right fingers. Vital Signs: 12:19 Pulse 89; Resp 16; Temp 97.1; Pulse Ox 97% ; Weight 126.1 kg; Height 5 ft. 11 in. ; ll1 Pain 5/10; 12:19 BP 146 / 90; ll1 14:50 BP 145 / 95; Pulse 72; Resp 17; Pulse Ox 98% ; Pain 3/10; ll1 12:19 Body Mass Index 38.77 (126.10 kg, 180.34 cm) ll1 12:19 Pain Scale: Adult ll1 14:50 Pain Scale: Adult ll1 ED Course: 12:00 Patient arrived in ED. sj2 12:00 [facility]C [facility]. dr5 12:00 Grabiel Seaman MD is Attending Physician. dr5 12:18 Arm band placed on. ll1 12:20 Triage completed. ll1 12:30 Patient has correct armband on for positive identification. Bed in low position. Call hb light in reach. Provided Education on: POC. 13:12 Inserted saline lock: 20 gauge in left antecubital area, using aseptic technique. ll1 Flushed with 10 mL NS. 13:33 Humerus Right XRAY In Process Unspecified. EDMS 13:33 Elbow Right 3 View XRAY In Process Unspecified. EDMS 14:04 Ammon Vuong MD is Referral Physician. dr5 14:04 Remy Ferrer MD is Referral Physician. dr5 14:18 Patient requests pain medication. mb9 14:47 No provider procedures requiring assistance completed. IV discontinued, intact, ll1 bleeding controlled, No redness/swelling at site. Pressure dressing applied. 14:47 Sling applied to right arm. ll1 Administered Medications: 12:40 Drug: HYDROcodone-acetaminophen PO 5 mg-325 mg 2 tabs PO once Route: PO; hb 13:25 Follow up: Response: No adverse reaction hb 13:21 Drug: morphine IVP or IV 4 mg IVP once over 4 mins {Note: pain 5/10 RASS 0.} Route: ll1 IVP; Infused Over: 4 mins; Site: left antecubital; 14:46 Follow up: Response: No adverse reaction; Pain is decreased; RASS: Alert and Calm (0) ll1 13:22 Drug: Ondansetron IVP 4 mg IVP once; over 2 minutes Route: IVP; Site: left antecubital; ll1 14:47 Follow up: Response: No adverse reaction ll1 Medication: 13:25 VIS not applicable for this client. hb Outcome: 14:04 Discharge ordered by . dr5 14:50 Discharged to home ambulatory, ll1 14:50 Condition: stable 14:50 Discharge instructions given to patient, Instructed on discharge instructions, follow up and referral plans. no drinking with medication, no driving heavy equipment, medication usage, Demonstrated understanding of instructions, follow-up care, medications, Prescriptions given X 1, 14:56 Patient left the ED. ll1 Signatures: Dispatcher [employer] EDMS Mellissa Perry RN RN hb Nikolai Coon RN RN ll1 Linsey Whipple RN RN mb9 Je Burton Dustin, [facility]-C [facility]-Cdr5
[2024-07-29] MEDS ORDERED: ONDANSETRON 4 MG (ODT) TAB ONE (14:45)
[2024-07-29 15:12] VITALS: BP 146/90; TEMP 97.1; O2SAT 97
== END 2024-07-29 14:56 | disposition home or self-care (01) ==
LOC: ER 11:55
DX: M79.621 Pain in right upper arm (principal); F17.220 Nicotine dependence, chewing tobacco, uncomplicated
CPT/HCPCS: 73080; 73060; 96375; 96374; 99284; Q0162; J2405